=== PATIENT | female | born 1970 | race Asian ===

== ENCOUNTER 2017-05-21 05:18 | Inpatient (IN) | payer OTHER ==
[2017-05-16 14:21] VITALS: BMI 24.7
[2017-05-21] MEDS ORDERED: CEFAZOLIN 1 GM/D5W 1 GM/50 ML BAG IVPB ONE (07:34)
--- NOTE | 2017-05-21 07:42 | HP ---
Past Medical History - Primary Care Physician PCP:: Bandar Wilcox - Admission Chief Complaint: high grade cervical dysplasia, menometrorrhagia History of Present Illness: 47 yo f with hx of HGSIL on colposcopy , hx of menometrorrhagia has decined cone biopsy, requesting to have hysterectomy does not desire and does not want to use contraception, risks of procedure discussed with patient , ulternatives has been discussed in detail History Source: Patient Limitations to Obtaining History: No Limitations - Past Medical History ...: 1 ...Para: 1 ...Term: 1 Heme/Onc: Yes: Anemia - Past Surgical History Hx Myomectomy: No Hx Transabdominal Cerclage: No - Smoking History Smoking history: Never smoked Have you smoked in the past 12 months: No - Alcohol/Substance Use Hx Alcohol Use: Yes (rare) History of Substance Use: reports: None - Social History Usual Living Arrangement: Yes: With Spouse History of Recent Travel: No Home Medications - Allergies Allergies/Adverse Reactions: Allergies Allergy/AdvReac Type Severity Reaction Status Date / Time No Known Allergies Allergy Verified 05/16/17 14:13 - Home Medications Home Medications: Ambulatory Orders Ascorbic Acid [Vitamin C] 500 mg PO DAILY 05/16/17 Calcium Carb/D3/Magnesium/Zinc [Brien Mag Zinc + D Tablet] 1 each PO DAILY Cholecalciferol (Vitamin D3) [Vitamin D-400] 400 unit PO DAILY 05/16/17 Review of Systems - Review of Systems Constitutional: reports: No Symptoms Eyes: reports: No Symptoms HENT: reports: No Symptoms Neck: reports: No Symptoms Cardiovascular: reports: No Symptoms Respiratory: reports: No Symptoms Gastrointestinal: reports: Bloating Genitourinary: reports: Vaginal Bleeding Breasts: reports: No Symptoms Reported Integumentary: reports: No Symptoms Neurological: reports: No Symptoms Endocrine: reports: No Symptoms Hematology/Lymphatic: reports: No Symptoms Psychiatric: reports: No Symptoms 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 Constitutional: Yes: Well Nourished, No Distress, Calm Eyes: Yes: WNL, Conjunctiva Clear, EOM Intact HENT: Yes: WNL, Atraumatic, Normocephalic Neck: Yes: WNL, Supple, Trachea Midline Cardiovascular: Yes: WNL, Regular Rate and Rhythm Respiratory: Yes: WNL, Regular, CTA Bilaterally Gastrointestinal: Yes: WNL ...Rectal Exam: Yes: WNL Renal/: Yes: WNL Pelvis: Yes: WNL External Genitalia: Yes: Normal Vaginal Exam: Yes: Normal Cervix: Yes: Normal (no gross lesion seen) Uterus: Yes: Boggy (prominant) Adnexa: Not Palpable: Left, Right Breast(s): Yes: WNL Musculoskeletal: Yes: WNL Extremities: Yes: WNL Integumentary: Yes: WNL Neurological: Yes: WNL, Alert, Oriented ...Motor Strength: WNL Psychiatric: Yes: WNL, Alert, Oriented Problem List - Problem (1) High grade squamous intraepithelial cervical dysplasia Code(s): R87.613 - HIGH GRADE INTREPITH LESION CYTO SMR CRVX (HGSIL) (2) Menometrorrhagia Code(s): N92.1 - EXCESSIVE AND FREQUENT MENSTRUATION WITH IRREGULAR CYCLE (3) Adenomyosis Code(s): N80.0 - ENDOMETRIOSIS OF UTERUS Assessment/Plan plan admit for abdominal hysterectomy, bilateral salpingectomy, rba discussed
[2017-05-21] MEDS ORDERED: ceFAZolin SODIUM 1 GM VIAL ONE (07:48)
[2017-05-21] MEDS ORDERED: ROCURONIUM BROMIDE 50 MG/5 ML VIAL ONE (08:30)
[2017-05-21] MEDS ORDERED: ROPIVACAINE HCL 0.5% 30ML VIAL ONE ×2 (08:31→08:43)
[2017-05-21] MEDS ORDERED: MIDAZOLAM HCL 2 MG/2 ML SINGLE DOSE VIAL ONE ×2 (08:39)
[2017-05-21] MEDS ORDERED: ceFAZolin SODIUM 1 GM VIAL IVPB ONE (09:25)
[2017-05-21] MEDS ORDERED: DESFLURANE GAS 240 ML BOTTLE IH ONE (09:57)
[2017-05-21] MEDS ORDERED: ONDANSETRON 4 MG/2 ML VIAL IVPUSH PRN (10:22)
[2017-05-21] MEDS ORDERED: LACTATED RINGERS SOLUTION 1,000 ML IV SCH (10:30)
[2017-05-21] MEDS ORDERED: oxyCODONE HCL 5 MG TABLET PO PRN (11:13)
[2017-05-21] MEDS ORDERED: IBUPROFEN 600 MG TABLET (FP) PO PRN (11:13)
[2017-05-21] MEDS ORDERED: ELECTROLYTE-148 SOLN 1,000 ML IV SCH (11:15)
[2017-05-21] MEDS: HYDROmorphone HCL CARPU-JECT 1 MG/1 ML DISP.SYRIN IVPB PRN ×2 (15:08→18:41)
[2017-05-21] MEDS: ONDANSETRON 4 MG/2 ML VIAL IVPUSH PRN ×2 (16:25→22:37)
--- NOTE | 2017-05-21 17:06 | OP ---
DATE OF OPERATION: 05/21/2017 PREOPERATIVE DIAGNOSES: High-grade cervical dysplasia, fibroid uterus, menometrorrhagia. POSTOPERATIVE DIAGNOSES: High-grade cervical dysplasia, fibroid uterus, menometrorrhagia, with pelvic adhesions. PROCEDURE: Abdominal hysterectomy with bilateral salpingectomy and lysis of pelvic adhesions. SURGEON: Bandar Wilcox MD PERSONAL CARER: Manda Castro MD ESTIMATED BLOOD LOSS: 50 mL DESCRIPTION OF OPERATIVE PROCEDURE: Patient was taken to the operating room. Under adequate general anesthesia, in the dorsal supine position, abdomen and perineum were prepped and draped. Pfannenstiel abdominal skin incision was made. Abdominal wall was cut layer by layer until peritoneum was exposed and incised. Upon entering the abdominal cavity, there were several omental adhesions to the anterior peritoneum, which was grasped with the LigaSure cautery, cauterized, and cut, and the adhesions were lysed. Upper abdomen was checked, was normal. Bowels were packed away. On the left side, the left ovary was adherent to the small bowel. At this time, the ovary was grasped with a [place] clamp, and with Metzenbaum scissors, the bowel adhesions were released from the left ovary. Then, both tubes were grasped with the [place] clamp and with the LigaSure cautery, cauterized at the mesosalpinx area, and both tubes were removed. Then, bladder was adherent to the anterior uterine wall. These adhesions were lysed with Metzenbaum scissors meticulously, and then, the bladder was pushed down. Then, the round ligament was grasped with a LigaSure cautery, cauterized, and cut, and released. Then, a bladder flap was developed, and bladder was pushed down. Then, a hole was made into the broad ligament, and then, the ovarian ligament was grasped with the bipolar LigaSure cautery, cauterized, and cut. Then, a tag was placed at the pedicle bilaterally. Then, the bladder was further pushed down. Uterine artery was identified bilaterally, clamped with Delmy clamp, cut, and the clamp replaced with 0 Vicryl suture bilaterally. Paracervical area was clamped with Delmy clamp, cut, and the clamp replaced with 0 Vicryl suture bilaterally. Then, the uterosacral ligament was identified, clamped with Delmy clamp, cut, and the clamp replaced with 0 Vicryl suture bilaterally. At this time, paracervical area was reached. Then, with a Delmy clamp, vaginal angles were clamped and cut, and the clamp replaced with 0 Vicryl suture bilaterally. These clamps were held. Then, specimen was removed below the cervix, and then, vaginal cuff was closed with interrupted suture of 0 Vicryl. No active bleeding was seen. Pelvic cavity was several times irrigated. Both ureters were manually palpated; they were normal. Then, all the lap pads, sponge, and instrument counts were correct. Peritoneum was closed with 0 Vicryl continuous suture. Muscles were brought together with interrupted suture of 0 Vicryl. Fascia was closed with 0 Vicryl continuous suture, subcutaneous fat with interrupted suture of 0 Vicryl, and the skin was closed with 4-0 Biosyn subcuticular continuous suture. Patient tolerated the procedure well, left the OR in good condition. Mayito [id number]
[2017-05-21] MEDS: CEFAZOLIN 1 GM PUSH 1 GM/10 ML DISP.SYRIN IVPUSH SCH (17:36)
[2017-05-21] MEDS: IBUPROFEN 800 MG/8 ML IJ IVPB PRN (23:17)
[2017-05-22] MEDS: CEFAZOLIN 1 GM PUSH 1 GM/10 ML DISP.SYRIN IVPUSH SCH ×2 (01:43→09:51)
[2017-05-22] MEDS: IBUPROFEN 800 MG/8 ML IJ IVPB PRN (06:20)
[2017-05-22 08:44] LABS: HEMATOCRIT 36.8 % (32.4-45.2); HEMOGLOBIN 12.2 GM/dL (10.7-15.3); MCH 29.4 pg (25.7-33.7); MEAN CELL VOLUME 89.1 fl (80-96); MEAN PLT VOLUME 8.4 fl (7.5-11.1); PLATELET COUNT 296 K/MM3 (134-434); RBC 4.13 M/mm3 (3.60-5.2); RDW 13.1 % (11.6-15.6); WHITE BLOOD COUNT 13.9 K/mm3 (4.0-10.0)
[2017-05-22] MEDS ORDERED: SIMETHICONE 80 MG TAB.CHEW (FP) PO PRN (09:01)
[2017-05-22] MEDS ORDERED: BISACODYL 10 MG SUPP.RECT PR PRN (09:02)
[2017-05-22 09:11] LABS: ANION GAP 10 (8-16); BLOOD UREA NITROGEN 6 mg/dL (7-18); CALCIUM 8.4 mg/dL (8.5-10.1); CHLORIDE 101 mmol/L (98-107); CO2 27 mmol/L (21-32); CREATININE 0.6 mg/dL (0.55-1.02); GLUCOSE,RANDOM 101 mg/dL (74-106); SODIUM 138 mmol/L (136-145)
[2017-05-22] MEDS ORDERED: ENOXAPARIN NA (PORCINE) 40 MG/0.4 ML DISP.SYRIN SQ SCH (10:00)
[2017-05-22] MEDS: ACETAMINOPHEN 325 MG TABLET (FP) PO PRN ×2 (10:39→15:40)
--- NOTE | 2017-05-22 14:24 | PN ---
Progress Note (short form) - Note Progress Note: pod 1 doing well, ambulating . not passing gas . has pain in low abdomen CBC, BMP 05/22/17 07:45 05/22/17 07:45 Last Vital Signs Temp Pulse Resp BP Pulse Ox 99.4 F 85 20 124/88 100 05/22/17 07:40 05/22/17 10:20 05/22/17 10:20 05/22/17 10:20 05/22/17 07:40 abdomen soft, no distension, no cva incision dry, clean no calf tenderness plan ambulate , advance diet pain management Problem List - Problems (1) High grade squamous intraepithelial cervical dysplasia Code(s): R87.613 - HIGH GRADE INTREPITH LESION CYTO SMR CRVX (HGSIL) (2) Menometrorrhagia Code(s): N92.1 - EXCESSIVE AND FREQUENT MENSTRUATION WITH IRREGULAR CYCLE (3) Adenomyosis Code(s): N80.0 - ENDOMETRIOSIS OF UTERUS
--- NOTE | 2017-05-22 19:35 | RAPID ---
Physical Examination Vital Signs: Vital Signs Temperature 98.9 F 05/22/17 17:20 Pulse Rate 91 H 05/22/17 17:20 Respiratory Rate 20 05/22/17 17:20 Blood Pressure 93/63 05/22/17 17:20 O2 Sat by Pulse Oximetry (%) 100 05/22/17 07:40 Findings/Remarks: Called to see a patient 47 yo f with hx of HGSIL on colposcopy , hx of menometrorrhagia now POD1 s/p hysterectomy, who was said to have seized. Pt was said to have been stiff, staring in to space, no jerky movements noted. No post ictal state clearly identified. No headaches, no aura. Pt is not known to have had seizures in the past. Said to have passed out x 3 earlier in the day each time she went to the bathroom PE: Neuro: AAOx3, no facial droop, no lateralizing signs, normal speech Constitutional: Yes: Well Nourished Eyes: Yes: Conjunctiva Clear. No: Sclera Icterus Neck: Yes: Supple Cardiovascular: Yes: Regular Rate and Rhythm, S1, S2 Respiratory: Yes: Other (NRB) Gastrointestinal: Yes: Distention, Other (Absent bowel sounds) Labs: CBC, BMP 05/22/17 07:45 05/22/17 07:45 Rapid Response - Rapid Response Assessment: Syncope R/O presyncope 2/2 orthostatic hypotension Initial BP 110/38 (MAP-54) Receiving 1L NS 93/64 (74) Fingerstick glucose-191 Outcome: Improved mentation and BP post initiation of 1L bolus NS Recommendations/Interventions: CBC, BMP, P, Mg Follow labs Interval abdominal exam Plan: Continue to follow
--- NOTE | 2017-05-22 19:55 | CONSULT ---
Consultation: REQUESTING PROVIDER: CONSULT REQUEST: We have been asked to medically evaluate this patient for ( "Staring"). HISTORY OF PRESENT ILLNESS: 47 yo f with hx of HGSIL on colposcopy , hx of menometrorrhagia, and adenomyosis now POD1 s/p hysterectomy, who was said to have "passed out" x 3 today all in the bathroom. Patient was found in the bathroom after the fall each time with no recollection of what happened. This evening, rapid response was called when patient was found "staring" and stiff after getting out of bed to chair. No jerky movements of the hands or feet, no urinary or fecal incontinence, no aura, no palpitations, no diaphoresis. No post-ictal sleep noted. No headaches, fevers, weakness of any side of the body, no facial droop. She recollected only attempting to get out of bed to chair. She was told about the "stiffness" by her family by the bedside. Pt has not had seizures in the past. She is POD1 s/p hysterectomy for HGSIL. Currently spotting, with no excessive blood loss per vagina. Has not moved her bowel since after the procedure. No dysuria. Pt has not noticed abd distension. Pt is on motrin and tylenol for pain as she did not want percocet. At rapid response she was noted to be hypotensive- initial BP-100/38 (MAP-54). After starting 1L bolus of NS her BP improved to 93/64 (MAP-74), Pt was found to be stable and AAOx3 with no lateralizing signs. CBC, CMP, Mg were drawn. REVIEW OF SYSTEMS: CONSTITUTIONAL: Absent: fever, chills, diaphoresis, generalized weakness, malaise, loss of appetite, weight change HEENT: Absent: rhinorrhea, nasal congestion, throat pain, throat swelling, difficulty swallowing, mouth swelling, ear pain, eye pain, visual changes CARDIOVASCULAR: Absent: chest pain, syncope, palpitations, irregular heart rate, lightheadedness , peripheral edema RESPIRATORY: Absent: cough, shortness of breath, dyspnea with exertion, orthopnea, wheezing, stridor, hemoptysis GASTROINTESTINAL: Absent: abdominal pain, abdominal distension, nausea, vomiting, diarrhea, constipation, melena, hematochezia GENITOURINARY: Absent: dysuria, frequency, urgency, hesitancy, hematuria, flank pain, genital pain MUSCULOSKELETAL: Absent: myalgia, arthralgia, joint swelling, back pain, neck pain SKIN: Absent: rash, itching, pallor HEMATOLOGIC/IMMUNOLOGIC: Absent: easy bleeding, easy bruising, lymphadenopathy, frequent infections ENDOCRINE: Absent: unexplained weight gain, unexplained weight loss, heat intolerance, cold intolerance NEUROLOGIC: Absent: headache, focal weakness or paresthesias, dizziness, unsteady gait, seizure, mental status changes, bladder or bowel incontinence PSYCHIATRIC: Absent: anxiety, depression, suicidal or homicidal ideation, hallucinations. PHYSICAL EXAMINATION Vital Signs - 24 hr 05/21/17 05/22/17 05/22/17 21:00 02:00 06:16 Temperature 97.9 F 98.6 F 99.0 F Pulse Rate 68 81 96 H Respiratory 18 18 18 Rate Blood Pressure 126/80 130/67 115/66 O2 Sat by Pulse 100 Oximetry (%) 05/22/17 05/22/17 05/22/17 07:40 10:20 15:10 Temperature 99.4 F Pulse Rate 83 85 80 Respiratory 20 20 20 Rate Blood Pressure 119/81 124/88 94/55 O2 Sat by Pulse 100 Oximetry (%) 05/22/17 05/22/17 15:12 17:20 Temperature 98.9 F Pulse Rate 81 91 H Respiratory 20 20 Rate Blood Pressure 104/60 93/63 O2 Sat by Pulse Oximetry (%) GENERAL: AAO x3, on NRB oxygen. In no acute painful distress. HEAD: Normal with no signs of trauma. EYES: Pupils equal, round and reactive to light, extraocular movements intact, sclera anicteric, conjunctiva clear. EARS, NOSE, THROAT: Ears normal, nares patent, oropharynx clear without exudates. Moist mucous membranes. NECK: Normal range of motion, supple without lymphadenopathy, JVD, or masses. LUNGS: Breath sounds equal, clear to auscultation bilaterally. No wheezes, and no crackles. HEART: Regular rate and rhythm, normal S1 and S2 ABDOMEN: Soft, generalized tenderness, enlarged approx 20 wks size, absent bowel sounds, guarding+, MUSCULOSKELETAL: Normal range of motion at all joints. No bony deformities or tenderness. No CVA tenderness. UPPER EXTREMITIES: 2+ pulses, warm, well-perfused. No cyanosis. No clubbing. Cap refill <2 seconds. No peripheral edema. LOWER EXTREMITIES: 2+ pulses, warm, well-perfused. No calf tenderness. No peripheral edema. NEUROLOGICAL: Cranial nerves II-XII intact. Normal speech. Gait not observed PSYCHIATRIC: Cooperative. Good eye contact. Appropriate mood and affect. CBC, BMP 05/22/17 20:50 05/22/17 20:50 Laboratory Results - last 24 hr 05/22/17 05/22/17 05/22/17 07:45 07:45 15:19 WBC 13.9 H D RBC 4.13 Hgb 12.2 Hct 36.8 MCV 89.1 MCH 29.4 MCHC 33.0 RDW 13.1 Plt Count 296 MPV 8.4 Sodium 138 Potassium 4.0 Chloride 101 Carbon Dioxide 27 Anion Gap 10 BUN 6 L Creatinine 0.6 POC Glucometer 179 Random Glucose 101 Calcium 8.4 L 05/22/17 19:14 WBC RBC Hgb Hct MCV MCH MCHC RDW Plt Count MPV Sodium Potassium Chloride Carbon Dioxide Anion Gap BUN Creatinine POC Glucometer 190 Random Glucose Calcium Active Medications Generic Name Dose Route Start Last Admin Trade Name Freq PRN Reason Stop Dose Admin Acetaminophen 650 mg 05/22/17 10:28 05/22/17 15:40 Tylenol - PO 650 mg Q4H PRN Administration PAIN LEVEL 1-5 Bisacodyl 10 mg 05/22/17 09:02 Dulcolax Suppository - [place] DAILY PRN CONSTIPATION Enoxaparin Sodium 40 mg 05/22/17 10:00 05/22/17 09:51 Lovenox - SQ 40 mg DAILY ROBERTO Administration Parenteral Electrolytes 1,000 mls @ 125 mls/hr 05/21/17 11:15 05/21/17 14:00 Plasma-Lyte 148 - IV 0 mls ASDIR ROBERTO Administration Ibuprofen 600 mg 05/21/17 11:13 05/22/17 15:38 Motrin - PO 600 mg Q6H PRN Administration PAIN LEVEL 1 - 3 Ibuprofen 800 mg 05/21/17 11:13 05/22/17 06:20 Caldolor Injection - IVPB 800 mg Q6H PRN Administration PAIN LEVEL 1-5 Ondansetron HCl 4 mg 05/21/17 11:13 05/21/17 22:37 Zofran Injection IVPUSH 4 mg Q6H PRN Administration NAUSEA Oxycodone HCl 5 mg 05/21/17 11:13 Roxicodone - PO Q4H PRN PAIN LEVEL 4 - 6 Simethicone 80 mg 05/22/17 09:01 05/22/17 15:40 Mylicon - PO 80 mg Q4H PRN Administration GAS ASSESSMENT/PLAN: 47 yo f with hx of HGSIL on colposcopy , hx of menometrorrhagia, and adenomyosis now POD1 s/p hysterectomy, who was said to have "passed out" x 3 today all in the bathroom with rapid response called for "staring". Syncope/presyncope: POD1 s/p hysterectomy for HGSIL Likely orthostatic R/O vasovagal Intra-operative blood loss 50mls Recurrent episodes of passing out in bathroom, usually after rising from lying down position Hypotension noted and corrected with Iv IL normal saline bolus Maintain MAP >65 Continue pain mx Type and screen and transfuse 1unit PRBCs CBC- hgb-7.3 from 12.2 this am Goal transfuse to get hgb >8 CT scan abd/pelvis w/iv contrast to R/O intra-abd bleed Stat Monitor vitals Repeat neuro checks Post transfuse CBC Follow up with Certified Physical Therapist Assistant post- CT abd if needed Other mx per primary team Dispo: We will continue to follow the patient. Thank you for this consultative opportunity. Visit type - Emergency Visit Emergency Visit: No - New Patient This patient is new to me today: Yes Date on this admission: 05/23/17 - Critical Care Critical Care patient: No
--- NOTE | 2017-05-22 20:06 | PN ---
Teaching Attending Note Name of Resident: Yashira Rivers ATTENDING PHYSICIAN STATEMENT I saw and evaluated the patient. I reviewed the resident's note and discussed the case with the resident. I agree with the resident's findings and plan as documented. SUBJECTIVE: OBJECTIVE: Vital Signs Period Temp Pulse Resp BP Sys/[place] Pulse Ox Last 24 Hr 97.9 F-99.4 F 68-96 18-20 93-130/55-88 100-100 HEART: S1S2, tachycardic LUNGS: Clear ABDOMEN: Soft, distended, (+) diffuse tenderness EXTREMITIES: No edema Laboratory Results - last 24 hr 05/22/17 05/22/17 05/22/17 07:45 07:45 15:19 WBC 13.9 H D RBC 4.13 Hgb 12.2 Hct 36.8 MCV 89.1 MCH 29.4 MCHC 33.0 RDW 13.1 Plt Count 296 MPV 8.4 Sodium 138 Potassium 4.0 Chloride 101 Carbon Dioxide 27 Anion Gap 10 BUN 6 L Creatinine 0.6 POC Glucometer 179 Random Glucose 101 Calcium 8.4 L 05/22/17 19:14 WBC RBC Hgb Hct MCV MCH MCHC RDW Plt Count MPV Sodium Potassium Chloride Carbon Dioxide Anion Gap BUN Creatinine POC Glucometer 190 Random Glucose Calcium Current Medications Generic Name Dose Route Start Last Admin Trade Name Freq PRN Reason Stop Dose Admin Acetaminophen 650 mg 05/22/17 10:28 05/22/17 15:40 Tylenol - PO 650 mg Q4H PRN Administration PAIN LEVEL 1-5 Bisacodyl 10 mg 05/22/17 09:02 Dulcolax Suppository - [place] DAILY PRN CONSTIPATION Enoxaparin Sodium 40 mg 05/22/17 10:00 05/22/17 09:51 Lovenox - SQ 40 mg DAILY ROBERTO Administration Parenteral Electrolytes 1,000 mls @ 125 mls/hr 05/21/17 11:15 05/21/17 14:00 Plasma-Lyte 148 - IV 0 mls ASDIR ROBERTO Administration Ibuprofen 600 mg 05/21/17 11:13 05/22/17 15:38 Motrin - PO 600 mg Q6H PRN Administration PAIN LEVEL 1 - 3 Ibuprofen 800 mg 05/21/17 11:13 05/22/17 06:20 Caldolor Injection - IVPB 800 mg Q6H PRN Administration PAIN LEVEL 1-5 Ondansetron HCl 4 mg 05/21/17 11:13 05/21/17 22:37 Zofran Injection IVPUSH 4 mg Q6H PRN Administration NAUSEA Oxycodone HCl 5 mg 05/21/17 11:13 Roxicodone - PO Q4H PRN PAIN LEVEL 4 - 6 Simethicone 80 mg 05/22/17 09:01 05/22/17 15:40 Mylicon - PO 80 mg Q4H PRN Administration GAS ASSESSMENT AND PLAN:
[2017-05-22 20:11] LABS: BASO % 0.1 % (0-2.0); LYMPH % 10.1 % (8-40); MCH 29.5 pg (25.7-33.7); MCHC 32.6 g/dl (32.0-36.0); MEAN CELL VOLUME 90.4 fl (80-96); MEAN PLT VOLUME 8.6 fl (7.5-11.1); MONO % 7.8 % (3.8-10.2); PLATELET COUNT 227 K/MM3 (134-434); RBC 2.08 M/mm3 (3.60-5.2); WHITE BLOOD COUNT 9.8 K/mm3 (4.0-10.0)
[2017-05-22 20:16] LABS: HEMOGLOBIN 6.1 GM/dL (10.7-15.3)
[2017-05-22 20:17] LABS: HEMATOCRIT 18.8 % (32.4-45.2)
[2017-05-22 20:28] LABS: INR 1.27 (0.82-1.09); PROTHROMBIN TIME (PATIENT) 14.4 SEC (9.98-11.88)
[2017-05-22 21:11] LABS: BASO % 0.1 % (0-2.0); HEMATOCRIT 22.4 % (32.4-45.2); HEMOGLOBIN 7.3 GM/dL (10.7-15.3); LYMPH % 10.2 % (8-40); MCH 29.1 pg (25.7-33.7); MCHC 32.7 g/dl (32.0-36.0); MEAN PLT VOLUME 8.6 fl (7.5-11.1); MONO % 8.6 % (3.8-10.2); NEUT % 81.1 % (42.8-82.8); PLATELET COUNT 246 K/MM3 (134-434); RBC 2.52 M/mm3 (3.60-5.2); WHITE BLOOD COUNT 12.3 K/mm3 (4.0-10.0)
[2017-05-22 21:22] LABS: INR 1.12 (0.82-1.09); PROTHROMBIN TIME (PATIENT) 12.7 SEC (9.98-11.88)
[2017-05-22 21:39] LABS: ANION GAP 6 (8-16); BLOOD UREA NITROGEN 10 mg/dL (7-18); CHLORIDE 103 mmol/L (98-107); CO2 26 mmol/L (21-32); CREATININE 0.6 mg/dL (0.55-1.02); GLUCOSE,RANDOM 143 mg/dL (74-106); SODIUM 135 mmol/L (136-145)
[2017-05-22 21:41] LABS: CALCIUM 6.8 mg/dL (8.5-10.1)
[2017-05-22] MEDS ORDERED: ACETAMINOPHEN 1000 MG/100 ML VIAL (NON FORMULARY) IVPB PRN (23:30)
--- NOTE | 2017-05-23 00:12 | PN ---
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 had episode of syncope this afternoon hb post op day 1 at 750 am was 12 repeat cbc this evening was 7 gm with elevated INR patient aler ,oriented , no acute distress CBC, BMP 05/22/17 20:50 05/22/17 20:50 Last Vital Signs Temp Pulse Resp BP Pulse Ox 98.6 F 79 20 103/57 100 05/22/17 21:14 05/22/17 21:14 05/22/17 21:14 05/22/17 21:14 05/22/17 07:40 abdomen soft, mild distension, no cva incision dry, clean no vaginal bleeding no calf tenderness impression elevated INR, anemia, r/o intrabdominal bleeding, ct scan abdomen pending ,patient was receiving motrin and lovenox plan transfuse 2 units prbc, repeat cbc , coag profile shankar , monitor i/o monitor BP . pulse revaluate Problem List - Problems (1) High grade squamous intraepithelial cervical dysplasia Code(s): R87.613 - HIGH GRADE INTREPITH LESION CYTO SMR CRVX (HGSIL) (2) Menometrorrhagia Code(s): N92.1 - EXCESSIVE AND FREQUENT MENSTRUATION WITH IRREGULAR CYCLE (3) Adenomyosis Code(s): N80.0 - ENDOMETRIOSIS OF UTERUS
[2017-05-23 04:25] LABS: BASO % 0.5 % (0-2.0); EOS % 0.2 % (0-4.5); HEMATOCRIT 29.9 % (32.4-45.2); HEMOGLOBIN 10.2 GM/dL (10.7-15.3); MCHC 34.2 g/dl (32.0-36.0); MEAN CELL VOLUME 87.5 fl (80-96); MEAN PLT VOLUME 8.6 fl (7.5-11.1); MONO % 11.6 % (3.8-10.2); NEUT % 60.7 % (42.8-82.8); PLATELET COUNT 208 K/MM3 (134-434); RBC 3.41 M/mm3 (3.60-5.2); RDW 14.1 % (11.6-15.6)
[2017-05-23 04:38] LABS: INR 1.12 (0.82-1.09); PROTHROMBIN TIME (PATIENT) 12.6 SEC (9.98-11.88)
[2017-05-23 05:00] LABS: ALBUMIN 2.7 g/dl (3.4-5.0); ALK PHOS 31 U/L (45-117); ANION GAP 3 (8-16); BILIRUBIN,TOTAL 0.9 mg/dL (0.2-1.0); BLOOD UREA NITROGEN 6 mg/dL (7-18); CHLORIDE 107 mmol/L (98-107); CO2 30 mmol/L (21-32); CREATININE 0.4 mg/dL (0.55-1.02); GLUCOSE,RANDOM 103 mg/dL (74-106); POTASSIUM 3.7 mmol/L (3.5-5.1); SGOT/AST 14 U/L (15-37); SGPT/ALT 20 U/L (12-78); SODIUM 140 mmol/L (136-145); TOT PROT 5.1 g/dl (6.4-8.2)
--- NOTE | 2017-05-23 06:42 | PN ---
Physical Exam: SUBJECTIVE: OBJECTIVE: Vital Signs Period Temp Pulse Resp BP Sys/Mcclendon Pulse Ox Last 24 Hr 98.1 F-99.4 F 70-103 20-22 92-124/38-88 100-100 GENERAL: The patient is awake, alert, and fully oriented, in no acute distress. HEAD: Normal with no signs of trauma. EYES: PERRL, extraocular movements intact, sclera anicteric, conjunctiva clear. No ptosis. ENT: Ears normal, nares patent, oropharynx clear without exudates, moist mucous membranes. NECK: Trachea midline, full range of motion, supple. LUNGS: Breath sounds equal, clear to auscultation bilaterally, no wheezes, no crackles, no accessory muscle use. HEART: Regular rate and rhythm, S1, S2 without murmur, rub or gallop. ABDOMEN: Soft, nontender, nondistended, normoactive bowel sounds, no guarding, no rebound, no hepatosplenomegaly, no masses. EXTREMITIES: 2+ pulses, warm, well-perfused, no edema. NEUROLOGICAL: Cranial nerves II through XII grossly intact. Normal speech, gait not observed. PSYCH: Normal mood, normal affect. SKIN: Warm, dry, normal turgor, no rashes or lesions noted Laboratory Results - last 24 hr 05/22/17 05/22/17 05/22/17 07:45 07:45 15:19 WBC 13.9 H D RBC 4.13 Hgb 12.2 Hct 36.8 MCV 89.1 MCH 29.4 MCHC 33.0 RDW 13.1 Plt Count 296 MPV 8.4 Neutrophils % Lymphocytes % Monocytes % Eosinophils % Basophils % PT with INR INR Sodium 138 Potassium 4.0 Chloride 101 Carbon Dioxide 27 Anion Gap 10 BUN 6 L Creatinine 0.6 Creat Clearance w eGFR POC Glucometer 179 Random Glucose 101 Calcium 8.4 L Magnesium Total Bilirubin AST ALT Alkaline Phosphatase Total Protein Albumin Blood Type Antibody Screen Crossmatch 05/22/17 05/22/17 05/22/17 19:14 19:30 19:30 WBC 9.8 RBC 2.08 L D Hgb 6.1 L* D Hct 18.8 L D MCV 90.4 MCH 29.5 MCHC 32.6 RDW 13.0 Plt Count 227 D MPV 8.6 Neutrophils % 82.0 D Lymphocytes % 10.1 D Monocytes % 7.8 Eosinophils % 0.0 D Basophils % 0.1 PT with INR INR Sodium Potassium Chloride Carbon Dioxide Anion Gap BUN Creatinine Creat Clearance w eGFR POC Glucometer 190 Random Glucose Calcium Magnesium 1.4 L Total Bilirubin AST ALT Alkaline Phosphatase Total Protein Albumin Blood Type Antibody Screen Crossmatch 05/22/17 05/22/17 05/22/17 19:30 19:30 20:50 WBC RBC Hgb Hct MCV MCH MCHC RDW Plt Count MPV Neutrophils % Lymphocytes % Monocytes % Eosinophils % Basophils % PT with INR 14.40 H INR 1.27 H Sodium Cancelled Potassium Cancelled Chloride Cancelled Carbon Dioxide Cancelled Anion Gap Cancelled BUN Cancelled Creatinine Cancelled Creat Clearance w eGFR Cancelled POC Glucometer Random Glucose Cancelled Calcium Cancelled Magnesium Total Bilirubin Cancelled AST Cancelled ALT Cancelled Alkaline Phosphatase Cancelled Total Protein Cancelled Albumin Cancelled Blood Type B POSITIVE Antibody Screen Negative Crossmatch See Detail 05/22/17 05/22/17 05/22/17 20:50 20:50 20:50 WBC 12.3 H RBC 2.52 L D Hgb 7.3 L D Hct 22.4 L D MCV 89.0 MCH 29.1 MCHC 32.7 RDW 13.0 Plt Count 246 MPV 8.6 Neutrophils % 81.1 Lymphocytes % 10.2 Monocytes % 8.6 Eosinophils % 0.0 Basophils % 0.1 PT with INR 12.70 H INR 1.12 Sodium 135 L Potassium 4.0 Chloride 103 Carbon Dioxide 26 Anion Gap 6 L BUN 10 Creatinine 0.6 Creat Clearance w eGFR POC Glucometer Random Glucose 143 H Calcium 6.8 L* Magnesium Total Bilirubin AST ALT Alkaline Phosphatase Total Protein Albumin Blood Type Antibody Screen Crossmatch 05/22/17 05/22/17 05/22/17 20:50 20:50 22:40 WBC RBC Hgb Hct MCV MCH MCHC RDW Plt Count MPV Neutrophils % Lymphocytes % Monocytes % Eosinophils % Basophils % PT with INR INR Sodium Potassium Chloride Carbon Dioxide Anion Gap BUN Creatinine Creat Clearance w eGFR POC Glucometer Random Glucose Calcium Magnesium 2.0 Total Bilirubin AST ALT Alkaline Phosphatase Total Protein Albumin 2.6 L Blood Type B POSITIVE Antibody Screen Crossmatch 05/23/17 05/23/17 05/23/17 04:00 04:00 04:00 WBC 12.0 H RBC 3.41 L D Hgb 10.2 L D Hct 29.9 L D MCV 87.5 MCH 30.0 MCHC 34.2 RDW 14.1 Plt Count 208 MPV 8.6 Neutrophils % 60.7 D Lymphocytes % 27.0 D Monocytes % 11.6 H Eosinophils % 0.2 D Basophils % 0.5 D PT with INR 12.60 H INR 1.12 Sodium 140 Potassium 3.7 Chloride 107 Carbon Dioxide 30 Anion Gap 3 L BUN 6 L Creatinine 0.4 L Creat Clearance w eGFR > 60 POC Glucometer Random Glucose 103 Calcium 7.0 L Magnesium Total Bilirubin 0.9 D AST 14 L ALT 20 Alkaline Phosphatase 31 L Total Protein 5.1 L Albumin 2.7 L Blood Type Antibody Screen Crossmatch Active Medications Generic Name Dose Route Start Last Admin Trade Name Freq PRN Reason Stop Dose Admin Acetaminophen 650 mg 05/22/17 10:28 05/22/17 15:40 Tylenol - PO 650 mg Q4H PRN Administration PAIN LEVEL 1-5 Acetaminophen 1,000 mg 05/22/17 23:30 Ofirmev Injection - IVPB Q6H PRN PAIN LEVEL 7 - 10 Bisacodyl 10 mg 05/22/17 09:02 Dulcolax Suppository - [place] DAILY PRN CONSTIPATION Parenteral Electrolytes 1,000 mls @ 125 mls/hr 05/21/17 11:15 05/21/17 14:00 Plasma-Lyte 148 - IV 0 mls ASDIR ROBERTO Administration Ondansetron HCl 4 mg 05/21/17 11:13 05/21/17 22:37 Zofran Injection IVPUSH 4 mg Q6H PRN Administration NAUSEA Oxycodone HCl 5 mg 05/21/17 11:13 Roxicodone - PO Q4H PRN PAIN LEVEL 4 - 6 Simethicone 80 mg 05/22/17 09:01 05/22/17 15:40 Mylicon - PO 80 mg Q4H PRN Administration GAS ASSESSMENT/PLAN:
[2017-05-23 08:02] LABS: INR 1.09 (0.82-1.09); PROTHROMBIN TIME (PATIENT) 12.3 SEC (9.98-11.88)
--- NOTE | 2017-05-23 08:41 | PN ---
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 awake alert CBC, BMP 05/23/17 04:00 05/23/17 04:00 Last Vital Signs Temp Pulse Resp BP Pulse Ox 98.2 F 79 20 123/69 100 05/23/17 08:00 05/23/17 08:00 05/23/17 08:00 05/23/17 08:00 05/22/17 19:30 abdomen soft, no distension , BS present incision dry, clean no vaginal bleeding impression mild elevation of INR ,ct scan result reviewed with radiologist HB stable , will repeat cbc at 12 pm, if significant drop may discuss embolization Problem List - Problems (1) High grade squamous intraepithelial cervical dysplasia Code(s): R87.613 - HIGH GRADE INTREPITH LESION CYTO SMR CRVX (HGSIL) (2) Menometrorrhagia Code(s): N92.1 - EXCESSIVE AND FREQUENT MENSTRUATION WITH IRREGULAR CYCLE (3) Adenomyosis Code(s): N80.0 - ENDOMETRIOSIS OF UTERUS
--- NOTE | 2017-05-23 12:55 | PN ---
Teaching Attending Note Name of Resident: Juan Guillen ATTENDING PHYSICIAN STATEMENT I saw and evaluated the patient. I reviewed the resident's note and discussed the case with the resident. I agree with the resident's findings and plan as documented. SUBJECTIVE:asymptomatic. states no recurrent syncopal episodes. weakness resolved with blood transfusion, no previous episodes prior to the hospital. no symptoms prior to syncope. 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 Syncope- due to anemia and acute blood loss. s/p 2 unit PRBC with appropriate response. will repeat CBC later today and transfuse as necessary. CTA of the abdomen pending to locate for possible intraabdominal bleeding. further management per LINING CEMENTER. pain control. bedrest today 2. Hypophosphatemia- neutraphos 3. Leukocytosis- possible reactive. is afebrile. f/u CT for possible intra- abdominal source. if conitnues to trend up or spikes fever will need full sepsis workup 4. DVT ppx- SCD
[2017-05-23 13:00] LABS: BASO % 0.3 % (0-2.0); EOS % 0.3 % (0-4.5); HEMATOCRIT 30.4 % (32.4-45.2); HEMOGLOBIN 10.1 GM/dL (10.7-15.3); LYMPH % 24.3 % (8-40); MCH 29.2 pg (25.7-33.7); MCHC 33.2 g/dl (32.0-36.0); MEAN PLT VOLUME 8.4 fl (7.5-11.1); MONO % 11.6 % (3.8-10.2); NEUT % 63.5 % (42.8-82.8); PLATELET COUNT 221 K/MM3 (134-434); RBC 3.46 M/mm3 (3.60-5.2); RDW 14.2 % (11.6-15.6); WHITE BLOOD COUNT 11.3 K/mm3 (4.0-10.0)
[2017-05-23] MEDS ORDERED: NAPH,MB-DB/K PH,MBDB POWDER PACKET PO ONE (14:45)
--- NOTE | 2017-05-23 14:57 | PN ---
Physical Exam: SUBJECTIVE: Patient seen and examined. S/P 2 transfusions last night. Patient says dizziness and lightheadedness resolved. She said she feels much better after blood transfusion. Denies headache, dizziness, nausea, vomiting, fevers, chest pain, SOB. OBJECTIVE: Vital Signs Period Temp Pulse Resp BP Sys/Mcclendon Pulse Ox Last 24 Hr 98.1 F-98.9 F 70-103 20-22 92-126/38-74 100 GENERAL: The patient is awake, alert, and fully oriented, in no acute distress. HEAD: Normal with no signs of trauma. EYES: PERRL, extraocular movements intact, sclera anicteric, conjunctiva clear. No ptosis. ENT: oropharynx clear without exudates, moist mucous membranes. NECK: supple. LUNGS: Breath sounds equal, clear to auscultation bilaterally, no wheezes, no crackles, no accessory muscle use. HEART: Regular rate and rhythm, S1, S2 without murmur, rub or gallop. ABDOMEN: Soft, diffusely tender to palpation, transverse abdominal dressing, no erythema or drainage around surgical site. EXTREMITIES: 2+ pulses, warm, well-perfused, no edema. NEUROLOGICAL: Cranial nerves II through XII grossly intact. Normal speech, gait not observed. Normal finger to nose. PSYCH: Normal mood, normal affect. Laboratory Results - last 24 hr 05/22/17 05/22/17 05/22/17 15:19 19:14 19:30 WBC RBC Hgb Hct MCV MCH MCHC RDW Plt Count MPV Neutrophils % Lymphocytes % Monocytes % Eosinophils % Basophils % PT with INR INR PTT (Actin FS) Sodium Potassium Chloride Carbon Dioxide Anion Gap BUN Creatinine Creat Clearance w eGFR POC Glucometer 179 190 Random Glucose Calcium Phosphorus Magnesium 1.4 L Total Bilirubin AST ALT Alkaline Phosphatase Total Protein Albumin Blood Type Antibody Screen Crossmatch 05/22/17 05/22/17 05/22/17 19:30 19:30 19:30 WBC 9.8 RBC 2.08 L D Hgb 6.1 L* D Hct 18.8 L D MCV 90.4 MCH 29.5 MCHC 32.6 RDW 13.0 Plt Count 227 D MPV 8.6 Neutrophils % 82.0 D Lymphocytes % 10.1 D Monocytes % 7.8 Eosinophils % 0.0 D Basophils % 0.1 PT with INR 14.40 H INR 1.27 H PTT (Actin FS) Sodium Cancelled Potassium Cancelled Chloride Cancelled Carbon Dioxide Cancelled Anion Gap Cancelled BUN Cancelled Creatinine Cancelled Creat Clearance w eGFR Cancelled POC Glucometer Random Glucose Cancelled Calcium Cancelled Phosphorus Magnesium Total Bilirubin Cancelled AST Cancelled ALT Cancelled Alkaline Phosphatase Cancelled Total Protein Cancelled Albumin Cancelled Blood Type Antibody Screen Crossmatch 05/22/17 05/22/17 05/22/17 20:50 20:50 20:50 WBC 12.3 H RBC 2.52 L D Hgb 7.3 L D Hct 22.4 L D MCV 89.0 MCH 29.1 MCHC 32.7 RDW 13.0 Plt Count 246 MPV 8.6 Neutrophils % 81.1 Lymphocytes % 10.2 Monocytes % 8.6 Eosinophils % 0.0 Basophils % 0.1 PT with INR INR PTT (Actin FS) Sodium 135 L Potassium 4.0 Chloride 103 Carbon Dioxide 26 Anion Gap 6 L BUN 10 Creatinine 0.6 Creat Clearance w eGFR POC Glucometer Random Glucose 143 H Calcium 6.8 L* Phosphorus Magnesium Total Bilirubin AST ALT Alkaline Phosphatase Total Protein Albumin Blood Type B POSITIVE Antibody Screen Negative Crossmatch See Detail 05/22/17 05/22/17 05/22/17 20:50 20:50 20:50 WBC RBC Hgb Hct MCV MCH MCHC RDW Plt Count MPV Neutrophils % Lymphocytes % Monocytes % Eosinophils % Basophils % PT with INR 12.70 H INR 1.12 PTT (Actin FS) Sodium Potassium Chloride Carbon Dioxide Anion Gap BUN Creatinine Creat Clearance w eGFR POC Glucometer Random Glucose Calcium Phosphorus Magnesium 2.0 Total Bilirubin AST ALT Alkaline Phosphatase Total Protein Albumin 2.6 L Blood Type Antibody Screen Crossmatch 05/22/17 05/23/17 05/23/17 22:40 04:00 04:00 WBC 12.0 H RBC 3.41 L D Hgb 10.2 L D Hct 29.9 L D MCV 87.5 MCH 30.0 MCHC 34.2 RDW 14.1 Plt Count 208 MPV 8.6 Neutrophils % 60.7 D Lymphocytes % 27.0 D Monocytes % 11.6 H Eosinophils % 0.2 D Basophils % 0.5 D PT with INR INR PTT (Actin FS) Sodium 140 Potassium 3.7 Chloride 107 Carbon Dioxide 30 Anion Gap 3 L BUN 6 L Creatinine 0.4 L Creat Clearance w eGFR > 60 POC Glucometer Random Glucose 103 Calcium 7.0 L Phosphorus Magnesium Total Bilirubin 0.9 D AST 14 L ALT 20 Alkaline Phosphatase 31 L Total Protein 5.1 L Albumin 2.7 L Blood Type B POSITIVE Antibody Screen Crossmatch 05/23/17 05/23/17 05/23/17 04:00 07:20 07:20 WBC RBC Hgb Hct MCV MCH MCHC RDW Plt Count MPV Neutrophils % Lymphocytes % Monocytes % Eosinophils % Basophils % PT with INR 12.60 H 12.30 H INR 1.12 1.09 PTT (Actin FS) 26.0 L Sodium Potassium Chloride Carbon Dioxide Anion Gap BUN Creatinine Creat Clearance w eGFR POC Glucometer Random Glucose Calcium Phosphorus Magnesium Total Bilirubin AST ALT Alkaline Phosphatase Total Protein Albumin Blood Type Antibody Screen Crossmatch 05/23/17 05/23/17 07:20 12:35 WBC 11.3 H RBC 3.46 L Hgb 10.1 L Hct 30.4 L MCV 88.0 MCH 29.2 MCHC 33.2 RDW 14.2 Plt Count 221 MPV 8.4 Neutrophils % 63.5 Lymphocytes % 24.3 Monocytes % 11.6 H Eosinophils % 0.3 Basophils % 0.3 PT with INR INR PTT (Actin FS) Sodium Potassium Chloride Carbon Dioxide Anion Gap BUN Creatinine Creat Clearance w eGFR POC Glucometer Random Glucose Calcium Phosphorus 1.8 L Magnesium Total Bilirubin AST ALT Alkaline Phosphatase Total Protein Albumin Blood Type Antibody Screen Crossmatch Active Medications Generic Name Dose Route Start Last Admin Trade Name Freq PRN Reason Stop Dose Admin Acetaminophen 650 mg 05/22/17 10:28 05/22/17 15:40 Tylenol - PO 650 mg Q4H PRN Administration PAIN LEVEL 1-5 Acetaminophen 1,000 mg 05/22/17 23:30 Ofirmev Injection - IVPB Q6H PRN PAIN LEVEL 7 - 10 Bisacodyl 10 mg 05/22/17 09:02 Dulcolax Suppository - [place] DAILY PRN CONSTIPATION Parenteral Electrolytes 1,000 mls @ 125 mls/hr 05/21/17 11:15 05/21/17 14:00 Plasma-Lyte 148 - IV 0 mls ASDIR ROBERTO Administration Ondansetron HCl 4 mg 05/21/17 11:13 05/21/17 22:37 Zofran Injection IVPUSH 4 mg Q6H PRN Administration NAUSEA Oxycodone HCl 5 mg 05/21/17 11:13 Roxicodone - PO Q4H PRN PAIN LEVEL 4 - 6 Simethicone 80 mg 05/22/17 09:01 05/22/17 15:40 Mylicon - PO 80 mg Q4H PRN Administration GAS ASSESSMENT/PLAN: 47 yo F wtih PMH HGSIL 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 Will repeat today -Abdominal CTA: S/P hysterectomy with postoperative fluid consistent with blood. The source of the bleeding cannot be determined but appears to be originating from the pelvis. -Further management per AUDIO VIDEO MECHANIC. -Pain Control with Oxycodone 5mg q4h -Agree with Bed Rest #Hypophosphatemia -repleted with Neutraphos -Monitor Phos #Leukocytosis -likely reactive -decreasing -patient afebrile #PPX -SCDs Visit type - Emergency Visit Emergency Visit: Yes ED Registration Date: 05/21/17 Care time: The patient presented to the Emergency Department on the above date and was hospitalized for further evaluation of their emergent condition. - New Patient This patient is new to me today: Yes Date on this admission: 05/23/17 - Critical Care Critical Care patient: No
[2017-05-23] MEDS: ACETAMINOPHEN 325 MG TABLET (FP) PO PRN (15:56)
[2017-05-23 21:21] LABS: HEMATOCRIT 28.5 % (32.4-45.2); HEMOGLOBIN 9.8 GM/dL (10.7-15.3); MCH 30.2 pg (25.7-33.7); MCHC 34.5 g/dl (32.0-36.0); MEAN CELL VOLUME 87.6 fl (80-96); PLATELET COUNT 229 K/MM3 (134-434); RBC 3.26 M/mm3 (3.60-5.2); RDW 14.4 % (11.6-15.6); WHITE BLOOD COUNT 11.1 K/mm3 (4.0-10.0)
[2017-05-24 07:57] VITALS: BP 122/78; PULSE 83; TEMP 98
[2017-05-24 08:04] LABS: BASO % 0.8 % (0-2.0); EOS % 1.8 % (0-4.5); HEMATOCRIT 30.8 % (32.4-45.2); HEMOGLOBIN 10.4 GM/dL (10.7-15.3); LYMPH % 32.1 % (8-40); MCH 29.7 pg (25.7-33.7); MCHC 33.9 g/dl (32.0-36.0); MEAN CELL VOLUME 87.6 fl (80-96); MEAN PLT VOLUME 8.4 fl (7.5-11.1); MONO % 9.2 % (3.8-10.2); NEUT % 56.1 % (42.8-82.8); PLATELET COUNT 227 K/MM3 (134-434); RBC 3.52 M/mm3 (3.60-5.2); WHITE BLOOD COUNT 9.4 K/mm3 (4.0-10.0)
[2017-05-24 08:38] LABS: MAGNESIUM 2.5 mg/dL (1.8-2.4); PHOSPHOROUS 2.5 mg/dL (2.5-4.9)
[2017-05-24] MEDS ORDERED: POLYETHYLENE GLYCOL 3350 119 GM BTL PO SCH (10:00)
--- NOTE | 2017-05-24 10:27 | PATH ---
Surgical Pathology Report Patient Name: KE REED [facility]. Rec. 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 Specimen(s) Received A: LEFT FALLOPIAN TUBE B: RIGHT FALLOPIAN TUBE C: UTERUS AND CERVIX Clinical History Cervical intraepithelial neoplasia severe, menorrhagia Final Diagnosis A. FALLOPIAN TUBE, LEFT, SALPINGECTOMY: FALLOPIAN TUBE (INCLUDING FULL LUMINAL PORTION) WITH PARATUBAL CYST. B. FALLOPIAN TUBE, RIGHT, SALPINGECTOMY: FALLOPIAN TUBE (INCLUDING FULL LUMINAL PORTION) WITH SMALL ADENOFIBROMA. C. UTERUS AND CERVIX, ABDOMINAL HYSTERECTOMY: CERVIX WITH FOCAL LOW GRADE SQUAMOUS INTRAEPITHELIAL LESION (LSIL/CERVICAL INTRAEPITHELIAL NEOPLASIA (BC 1). UNREMARKABLE ENDOCERVIX. PROLIFERATIVE ENDOMETRIUM. LEIOMYOMATA. Electronically Signed Nancy Staton M.D. Gross Description A. Received in formalin labeled "left fallopian tube," is a 4 cm in length fimbriated portion of fallopian tube. The outer surface is concepcion purple and smooth with a 0.5 cm in greatest dimension paratubal cyst attached to the fimbria. Sectioning reveals an unremarkable lumen. [employer] sections are submitted in 2 cassettes as follows: 1-fimbria with paratubal cyst; 2-cross sections of fallopian tube. B. Received in formalin labeled "right fallopian tube," is a 3.5 cm in length fimbriated fallopian tube. The outer surface is pink-wong and smooth with a 0.4 cm greatest dimension firm nodule, possibly consistent with a fibroid, attached to the fimbria. Sectioning reveals an unremarkable lumen. Model Maker [employer] sections are submitted in 2 cassettes as follows: 1-fimbria with possible fibroid; 2-cross sections of fallopian tube. C. Received in formalin labeled "uterus and cervix," is a 134 g uterus with an attached cervix and no attached adnexa. The specimen measures 11 cm from superior to inferior, 6.5 cm from left to right and 5.5 cm from anterior to posterior. The serosa is pink-wong and smooth with focal subserosal nodules. The attached cervix measures 4 cm in length and averages 2.6 cm in diameter. The ectocervix is pink-wong, smooth and glistening. The endocervix is unremarkable. The endometrial cavity measures 4.5 cm in length and 1.8 cm from cornu to cornu. The endometrium is wong-red and averages 0.2 cm in thickness. The myometrium displays abundant intramural nodules, measuring up to 2.3 cm in greatest dimension. The cut surface of the nodules is wong, firm to rubbery and displays whorled architecture. No areas of hemorrhage or necrosis are identified. The remaining myometrium is wong-pink and averages 2.6 cm in thickness. Model Maker [employer] sections are submitted in 13 cassettes as follows: 1-1:00 to 2:00 cervix; 2-3:00 to 4:00 cervix; 3-5:00 to 6:00 cervix; 4-7:00 to 8:00 cervix; 5-9:00 to 10:00 cervix; 6-11:00 to 12:00 cervix; 4-4-ixklyllb endomyometrium; 7-71-rynanmtax endomyometrium; 25-87-mglrxtgxxx nodules; 13-subserosal nodules. 05/21/2017 [facility]05/21/2017
--- NOTE | 2017-05-24 11:49 | PN ---
Teaching Attending Note Name of Resident: Juan Guillen ATTENDING PHYSICIAN STATEMENT I saw and evaluated the patient. I reviewed the resident's note and discussed the case with the resident. I agree with the resident's findings and plan as documented. SUBJECTIVE:asymptomatic. ambulating without symptoms. 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 Syncope- due to anemia and acute blood loss. s/p 2 unit PRBC with appropriate response. no repeat episodes. unlikely to be cardiac or neuro related. now resolved. 2. Hypophosphatemia-resolved 3. Leukocytosis- possible reactive. is afebrile. CT negative for infection. now resolved 4. DVT ppx- SCD 5. Thank you for this consultative opportunity. please re-consult if needed. no medical objection to discharge at this time
--- NOTE | 2017-05-24 13:35 | PN ---
Physical Exam: SUBJECTIVE: Patient seen and examined. No acute events overnight. Patient says dizziness and lightheadedness resolved. Denies headache, dizziness, nausea, vomiting, fevers, chest pain, SOB. OBJECTIVE: Vital Signs Period Temp Pulse Resp BP Sys/Mcclendon Pulse Ox Last 24 Hr 98.0 F-98.8 F 83-94 20-20 118-122/62-78 98-100 GENERAL: The patient is awake, alert, and fully oriented, in no acute distress. HEAD: Normal with no signs of trauma. EYES: PERRL, extraocular movements intact, sclera anicteric, conjunctiva clear. No ptosis. ENT: oropharynx clear without exudates, moist mucous membranes. NECK: supple. LUNGS: Breath sounds equal, clear to auscultation bilaterally, no wheezes, no crackles, no accessory muscle use. HEART: Regular rate and rhythm, S1, S2 without murmur, rub or gallop. ABDOMEN: Soft, diffusely tender to palpation, transverse abdominal dressing, no erythema or drainage around surgical site. EXTREMITIES: 2+ pulses, warm, well-perfused, no edema. NEUROLOGICAL: Cranial nerves II through XII grossly intact. Normal speech, gait not observed. Normal finger to nose. PSYCH: Normal mood, normal affect. Laboratory Results - last 24 hr 05/23/17 05/24/17 05/24/17 19:30 06:50 07:35 WBC 11.1 H 9.4 RBC 3.26 L 3.52 L Hgb 9.8 L 10.4 L Hct 28.5 L 30.8 L MCV 87.6 87.6 MCH 30.2 29.7 MCHC 34.5 33.9 RDW 14.4 14.0 Plt Count 229 227 MPV 9.0 8.4 Neutrophils % 56.1 Lymphocytes % 32.1 D Monocytes % 9.2 Eosinophils % 1.8 D Basophils % 0.8 Phosphorus 2.5 Magnesium 2.5 H ASSESSMENT/PLAN: #Syncope -patient improved -secondary to anemia and acute blood loss -S/P 2 PRBC overnight 05/23 with appropriate response in H&H -Abdominal CTA: S/P hysterectomy with postoperative fluid consistent with blood. The source of the bleeding cannot be determined but appears to be originating from the pelvis. -Further management per MASTER MACHINIST. -Pain Control with Oxycodone 5mg q4h #Hypophosphatemia -resolved -repleted with Neutraphos #Leukocytosis -resolved -likely reactive -decreasing -patient afebrile #PPX -SCDs Thank you for the consult. No objection to discharge at this time. Visit type - Emergency Visit Emergency Visit: Yes ED Registration Date: 05/21/17 Care time: The patient presented to the Emergency Department on the above date and was hospitalized for further evaluation of their emergent condition. - New Patient This patient is new to me today: No - Critical Care Critical Care patient: No
--- NOTE | 2017-05-27 20:51 | DS ---
Physical Exam-TEACHER LEARNING DISABLED Vital Signs: Vital Signs Temperature 98.0 F 05/24/17 07:10 Pulse Rate 83 05/24/17 07:10 Respiratory Rate 20 05/24/17 07:10 Blood Pressure 122/78 05/24/17 07:10 O2 Sat by Pulse Oximetry (%) 100 05/24/17 07:10 Constitutional: Yes: Well Nourished, No Distress, Calm Eyes: Yes: WNL, Conjunctiva Clear, EOM Intact HENT: Yes: WNL, Atraumatic, Normocephalic Neck: Yes: WNL, Supple, Trachea Midline Cardiovascular: Yes: WNL, Regular Rate and Rhythm Respiratory: Yes: WNL, Regular, CTA Bilaterally Gastrointestinal: Yes: WNL ...Rectal Exam: Yes: WNL Renal/: Yes: WNL Pelvis: Yes: Other Breast(s): Yes: WNL Musculoskeletal: Yes: WNL Extremities: Yes: WNL Edema: No Integumentary: Yes: WNL Wound/Incision: Yes: Clean/Dry, Well Approximated, Sutures Intact Neurological: Yes: WNL, Alert, Oriented ...Motor Strength: WNL Psychiatric: Yes: WNL, Alert, Oriented Labs: CBC, BMP 05/24/17 06:50 05/23/17 04:00 Discharge Summary Reason For Visit: CERVICAL INTRAEPITHELIAL NEOPLASIA SEVERE, menomee Procedures: Principal: supracervical abdominal hysterectomy Other Procedures: blood tracsfusion 2 units Hospital Course: post op anermia Condition: Good - Instructions Diet, Activity, Other Instructions: regular diet, follow up office 2 weeks, if pain, bleeding, dizziness call md Referrals: Bandar Wilcox MD [Staff Physician] - Disposition: HOME - Home Medications Comprehensive Discharge Medication List: Ambulatory Orders Ascorbic Acid [Vitamin C] 500 mg PO DAILY 05/16/17 Calcium Carb/D3/Magnesium/Zinc [Brien Mag Zinc + D Tablet] 1 each PO DAILY Cholecalciferol (Vitamin D3) [Vitamin D-400] 400 unit PO DAILY 05/16/17 Acetaminophen [Tylenol Extra Strength] 500 mg PO TID #60 tablet 05/23/17
== END 2017-05-24 12:50 | disposition home or self-care (01) | DRG 743 ==
LOC: JSAMEDAYSX 05:18 → EDSTATUS 09:00 → J3W 14:20
PROVIDERS: ADMIT Obstetrics & Gynecology; ATTEND Obstetrics & Gynecology
PROC: 0DNW0ZZ Release Peritoneum, Open Approach (ICD-10-PCS; 2017-05-21)
PROC: 0UT70ZZ Resection of Bilateral Fallopian Tubes, Open Approach (ICD-10-PCS; 2017-05-21)
PROC: 0UT90ZZ Resection of Uterus, Open Approach (ICD-10-PCS; principal; 2017-05-21 09:00)
DX: D25.9 Leiomyoma of uterus, unspecified (principal); N73.6 Female pelvic peritoneal adhesions (postinfective); N87.9 Dysplasia of cervix uteri, unspecified; R55 Syncope and collapse; E83.39 Other disorders of phosphorus metabolism; D72.829 Elevated white blood cell count, unspecified; N92.1 Excessive and frequent menstruation with irregular cycle; N80.0 Endometriosis of uterus; R87.613 High grade squamous intraepithelial lesion on cytologic smear of cervix (HGSIL); N83.8 Other noninflammatory disorders of ovary, fallopian tube and broad ligament
CPT/HCPCS: 36415; 36430; 36511; 74174-TC; 80048; 80053; 82040; 82962; 83735; 84100; 84703; 85025; 85027; 85610; 85730; 86850; 86900; 86901; 86922; 88302-TC; 88307-TC; 94760; P9038; P9058